=== PATIENT | male | born 1935 ===

== ENCOUNTER → 2016-04-05 | Outpatient (CLI) | payer MEDICARE, OTHER ==
--- NOTE | 2016-04-05 13:13 | RAD ---
Bilateral knees, 6 views, 04/05/2016: History: Arthritis There is considerable narrowing of both knee joints which is most severe medially. There is moderate marginal spurring. There is moderate spurring at the patellofemoral articulations, worse on the right. 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 No acute fracture or dislocation is identified. No bony erosions are seen. No large joint effusion is evident. There are scattered arterial calcifications as well as numerous phleboliths in the soft tissues. IMPRESSION: 1. 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 2. 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
--- NOTE | 2016-04-05 13:15 | RAD ---
Bilateral shoulders, 6 views, 04/05/2016: History: Shoulder pain On the right there are moderate degenerative changes at the glenohumeral articulation. There is mild subacromial spurring. There are mild cystic and sclerotic changes at rotator cuff insertion sites on the greater tuberosity. No bone erosions are seen. A lesser degree of degenerative change is present at the left shoulder. No fracture or dislocation is identified on either side. The periarticular soft tissues are unremarkable. IMPRESSION: 1. Moderate degenerative change, right greater than left. 2. No acute bony abnormality is detected.
== END | disposition home or self-care (01) ==
LOC: RAD 10:12
PROVIDERS: ATTEND Surgery
DX: M19.012 Primary osteoarthritis, left shoulder (principal); M19.011 Primary osteoarthritis, right shoulder; M10.9 Gout, unspecified
CPT/HCPCS: 73030; 73562